=== PATIENT | male | born 1955 | race Caucasian/White ===

== ENCOUNTER 2019-05-28 10:06 | Outpatient (CLI) | payer OTHER, SELFPAY ==
--- NOTE | 2019-05-28 10:13 | IR_ITS ---
WS: [id number] CERVICAL MYELOGRAM HISTORY: NECK PAIN COMPARISON: None available. FLUOROSCOPY TIME: 1.8 minutes. Procedure, risks and complications were explained to the patient. Risks including bleeding, infection , headaches, allergic reaction and seizures. Consent has been obtained. With the patient in prone position the skin over the lumbar region is cleansed with ChloraPrep and an esthetized with lidocaine. 22-gauge spinal needle is inserted into the thecal sac at the appropriate level determined by fluoroscopy. Omnipaque 300; 12 ml is injected slowly under fluoroscopy with no co mplications. Needle bevel is perpendicular to the longitudinal fibers of the dura. Stylet is reinsert ed prior to removal of the needle. Patient tolerated the procedure well. Patient will proceed to CT f or further evaluation. Moderate spondylitic changes in the lumbar spine. Dorsal column stimulator is present. Limited evaluation of the cervical spine in the lateral projection. Normal alignment on neutral imag ing. With flexion and extension no significant instability from C2 to the superior aspect of C5. At C 5-6 moderate degenerative disc disease. IR/IR myelogram sp cervical [id number] IMPRESSION: 1. Uncomplicated cervical myelogram. 2. No cervical instability. Evaluation for instability is limited by body habi tus.
--- NOTE | 2019-05-28 10:14 | CT_ITS ---
WS: [id number] CT CERVICAL MYELOGRAM HISTORY: NECK PAIN Technique: All CT scans at [facility] use at least one of these dose optimization techniq ues: automated exposure control; mA and/or kV adjustment per patient size (includes targeted exams wh ere dose is matched to clinical indication); or iterative reconstruction. DLP: 1928.2 mGycm COMPARISON: None available. Good opacification of thecal sac with contrast. Straightening of the normal cervical lordosis. Less than 2 mm anterolisthesis of C3 and C4. C5 retrol isthesis by 2 mm. There is also a 2.3 mm osteophyte extending posteriorly from the C5 and C6 vertebra l bodies. No fractures. Moderate disc space narrowing at C5-6 and C6-7. No fracture. Lateral masses o f C1 and C2 are aligned odontoid is intact. Craniocervical junction is normal. C1-C2: Normal. C2-C3: Mild osteophytic ridging without stenosis. C3-C4: Tiny central disc protrusion and mild osteophytic ridging. Facet joint arthropathy is moderate on the LEFT. Mild LEFT foraminal stenosis. C4-C5: Mild osteophytic ridging and facet arthropathy. Significant osteophyte encroachment in the far lateral LEFT foramen causing moderate to severe stenosis. C5-C6: Moderate osteophytic ridging with osteophyte encroachment upon the ventral thecal sac, greates t to the RIGHT of midline. Moderate central with moderate to severe bilateral foraminal stenosis. C6-C7: Diffuse osteophytic ridging with encroachment upon the thecal sac. Osteophyte encroachment upo n the ventral thecal sac with effacement of CSF. Greatest osteophyte to the RIGHT of midline. There i s osteophyte contact on the cord. Severe central and bilateral foraminal stenosis. C7-T1: No stenosis. CT/CT cervical spine w con [id number] IMPRESSION: 1. Uncomplicated cervical myelogram. 2. Moderate central with moderate to severe bilateral foraminal stenosis at C5 -C6. Predominantly due to osteophyte disease. 3. Severe central and bilateral foraminal stenosis at C6-7 predominantly due t o osteophyte disease. 4. Moderate to severe far lateral LEFT foraminal stenosis at C4-5 due to osteo phytes. 5. Moderate spondylosis at C5-6 and C6-7.
[2019-05-28] MEDS: iohexol 300 mg/mL 50 mL Btl INTRATHECA (10:50)
== END 2019-05-28 10:07 | disposition home or self-care (01) ==
LOC: RADWPI 10:10
PROVIDERS: Family Provider Nurse Practitioner; PCP Nurse Practitioner; Referring Provider Nurse Practitioner; Visit Provider Specialist
DX: M48.02 Spinal stenosis, cervical region (principal); M47.892 Other spondylosis, cervical region; M54.2 Cervicalgia
CPT/HCPCS: 62302; 72040; 72126; J2001; Q9967

== ENCOUNTER → 2019-07-13 11:16 | Outpatient (BNVA) | payer OTHER, SELFPAY | PROVIDERS: Family Provider Nurse Practitioner; PCP Nurse Practitioner; Visit Provider Anesthesiology | DX: G89.29 Other chronic pain (principal); M43.16 Spondylolisthesis, lumbar region; M48.062 Spinal stenosis, lumbar region with neurogenic claudication; M51.17 Intervertebral disc disorders with radiculopathy, lumbosacral region; Z79.891 Long term (current) use of opiate analgesic | CPT/HCPCS: 99214 ==

== ENCOUNTER → 2019-11-13 08:50 | Outpatient (BNVA) | payer OTHER, SELFPAY | PROVIDERS: Family Provider Nurse Practitioner; PCP Nurse Practitioner; Visit Provider Anesthesiology | DX: G89.29 Other chronic pain (principal); M54.41 Lumbago with sciatica, right side; M54.42 Lumbago with sciatica, left side; Z79.891 Long term (current) use of opiate analgesic | CPT/HCPCS: 99212; 99214 ==